=== PATIENT | female | born 1990 | race Hispanic/Latino ===

== ENCOUNTER 2017-09-07 16:44 | Emergency (ER) | payer OTHER | END 2017-09-07 18:10 | disposition home or self-care (01) | LOC: EDH 16:44 | DX: J01.90 Acute sinusitis, unspecified (principal); J06.9 Acute upper respiratory infection, unspecified | CPT/HCPCS: 87804 ==

== ENCOUNTER 2017-09-29 19:57 | Emergency (ER) | payer OTHER ==
[2017-09-29 21:15] LABS: BILIRUBIN,URINE Negative (NEGATIVE); COLOR,URINE Yellow (YELLOW); GLUCOSE, URINE (UA) Negative (NEGATIVE); KETONES,URINE Negative (NEGATIVE); LEUKOCYTE ESTERASE ,URINE Moderate (NEGATIVE); NITRATE,URINE Negative (NEGATIVE); OCCULT BLOOD,URINE Negative (NEGATIVE); PROTEIN,URINE Negative (NEGATIVE); UROBILINOGEN,URINE 0.2 mg/dL (0.2-1.0)
[2017-09-29 21:33] LABS: APPEARANCE,URINE SLIGHTLY CLOUDY (CLEAR)
[2017-09-29 21:38] LABS: RBC,URINE 0-1 /HPF (0-1)
[2017-09-29 21:39] LABS: AMORPHOUS SEDIMENT,UR Few /LPF (None Seen); BACTERIA,URINE Few /HPF (None Seen); SQUAMOUS EPITHELIAL CELL,UR Few /LPF (0-2)
== END 2017-09-29 21:52 | disposition home or self-care (01) ==
LOC: EDH 19:57
DX: O23.41 Unspecified infection of urinary tract in pregnancy, first trimester (principal); Z3A.10 10 weeks gestation of pregnancy
CPT/HCPCS: 76801; 81001; 87088